=== PATIENT | female | born 1975 | race Two or more races ===

== ENCOUNTER 2019-02-06 07:48 | Emergency (ER) | payer OTHER ==
[~2019-02-06] VITALS: Ht 160 cm; Wt 95.3 kg
[2019-02-06 08:40] LABS: Urine Bacteria FEW /hpf (None Seen); Urine Blood 3+ /uL (Negative); Urine Mucus FEW (None Seen); Urine Specific Gravity 1.017 (1.001-1.035); Urine WBC 53 /hpf (0 - 5)
[2019-02-06] MEDS ORDERED: KETOROLAC TROMETH 60MG/2ML VIAL IM ONE (09:00)
[2019-02-06 09:57] VITALS: BP 137/84
== END 2019-02-06 10:23 | disposition home or self-care (01) ==
LOC: ER 07:51
DX: N39.0 Urinary tract infection, site not specified (principal); N20.0 Calculus of kidney; I10 Essential (primary) hypertension; M19.90 Unspecified osteoarthritis, unspecified site
CPT/HCPCS: 74176; 81001; 81025; 96372; 99284; J1885

== ENCOUNTER 2019-11-11 11:50 | Inpatient (IN) | payer OTHER ==
[~2019-11-11] VITALS: Ht 160 cm; Wt 102.7 kg
[2019-11-11 12:33] LABS: Urine WBC None Seen /hpf (0 - 5)
[2019-11-11 12:53] LABS: Urine Amorphous Crystal MANY /hpf (None Seen); Urine Bacteria FEW /hpf (None Seen); Urine Blood 2+ /uL (Negative); Urine Mucus FEW (None Seen)
[2019-11-11] MEDS ORDERED: SODIUM CHLORIDE 0.9% 1,000 ML IV ONE ×2 (13:12)
[2019-11-11] MEDS ORDERED: KETOROLAC TROMETH 15 mg/ml 1ML VL IV ONE (13:15)
[2019-11-11] MEDS ORDERED: ONDANSETRON HCL 4 MG/2 ML VIAL IV ONE (13:15)
[2019-11-11 13:31] LABS: Basophils # (auto) 0.1 uL; Hematocrit 38.1 % (36.0-46.0); Hemoglobin 11.9 g/dL (12.2-16.2); Lymphocytes # (auto) 2.4 uL; Mean Corpuscular Hemoglobin 23.6 pg (28.0-32.0); Monocytes # (auto) 0.8 uL; Neutrophils # (auto) 6.2 uL
[2019-11-11 13:33] LABS: Basophils % (auto) 0.5 % (0.0-2.0); Eosinophils # (auto) 0.5 uL; Eosinophils % (auto) 4.6 % (0.0-7.0); Lymphocytes % (auto) 24.4 % (10.0-50.0); Mean Corpuscular Hgb Conc. 31.3 g/dL (32.0-36.0); Mean Corpuscular Volume 75.3 fL (80.0-100.0); Monocytes % (auto) 8.2 % (0.0-12.0); Neutrophils % (auto) 62.3 % (37.0-80.0); Platelet Count (auto) 438 10^3/uL (140-450); Red Blood Cells 5.06 10^6/uL (4.0-5.20)
[2019-11-11 14:04] LABS: Albumin 3.2 g/dL (3.4-5.0); BUN/Creatinine Ratio 19.7; Calcium 8.4 mg/dL (8.5-10.1); Potassium 4.3 mmol/L (3.5-5.1)
[2019-11-11 14:07] LABS: Bilirubin, Total 0.2 mg/dL (0.2-1.0); Total Protein 8.5 g/dL (6.4-8.2)
[2019-11-11] MEDS ORDERED: TAMSULOSIN HYDROCHLORIDE 0.4 MG CAP PO ONE (15:30)
[2019-11-11] MEDS ORDERED: TEMAZEPAM 15 MG CAP PO PRN (19:00)
[2019-11-11] MEDS ORDERED: cefTRIAXone 1GM/50ML D5W 50 ML IV ONE (19:00)
[2019-11-11] MEDS ORDERED: ALPRAZolam 0.5 MG TAB PO PRN (19:30)
--- NOTE | 2019-11-11 19:30 | NUR ---
Patient arrived to unit via wheelchair. She was able to ambulate to her bed without assistance. Patient is A0x4 and on room air. She complains of lower flank pain and also right inguinal region pain. She has no further complaints of pain or discomfort. Bed is locked in lowest position with side rails up x2. Will continue to monitor.
[2019-11-11] MEDS ORDERED: QUET400T PO (19:57)
[2019-11-11] MEDS ORDERED: LOSA-69 PO (19:57)
[2019-11-11] MEDS ORDERED: IBUP800T24 PO (19:57)
[2019-11-11] MEDS ORDERED: ALPR0.5T7 PO (19:57)
[2019-11-11] MEDS ORDERED: HYDR50CA2 PO (19:58)
[2019-11-11] MEDS: SODIUM CHLORIDE 0.9% 1,000 ML IV SCH (20:24)
[2019-11-11] MEDS: traMADol HCL 50 MG TAB PO PRN (21:10)
[2019-11-11] MEDS ORDERED: QUET50TA PO (21:21)
[2019-11-11] MEDS: QUEtiapine FUMARATE 100 MG TAB PO SCH (22:41)
[2019-11-11] MEDS: QUEtiapine FUMARATE 25 MG TAB PO SCH (22:41)
[2019-11-11] MEDS: FAMOTIDINE 20 MG TAB PO SCH (22:42)
[2019-11-11 22:59] VITALS: BP 137/75
[2019-11-12] MEDS: traMADol HCL 50 MG TAB PO PRN ×2 (03:42→10:13)
[2019-11-12] MEDS ORDERED: PNEUMOCOCCAL VACC POLYS 25 MCG/0.5 ML VIAL IM ONE (06:00)
[2019-11-12] MEDS ORDERED: INFLUENZA QUAD 2019-2020 0.5ml SYRG IM ONE ×2 (06:00→06:14)
[2019-11-12 06:03] VITALS: BP 129/71
[2019-11-12] MEDS: SODIUM CHLORIDE 0.9% 1,000 ML IV SCH ×3 (06:11→20:04)
[2019-11-12] MEDS: QUEtiapine FUMARATE 25 MG TAB PO SCH ×3 (06:12→22:19)
[2019-11-12 07:36] LABS: Potassium 3.8 mmol/L (3.5-5.1)
[2019-11-12 07:44] LABS: BUN/Creatinine Ratio 16.7; Bilirubin, Total 0.4 mg/dL (0.2-1.0); Calcium 8.2 mg/dL (8.5-10.1); Total Protein 7.8 g/dL (6.4-8.2)
[2019-11-12 08:01] VITALS: BP 117/65
[2019-11-12] MEDS: FAMOTIDINE 20 MG TAB PO SCH ×2 (09:06→22:19)
[2019-11-12] MEDS: cefTRIAXone 1GM/50ML D5W 50 ML IV SCH (09:07)
[2019-11-12] MEDS: PROMETHAZINE HCL 25 MG/ML 1ML IV PRN ×3 (10:13→20:04)
--- NOTE | 2019-11-12 10:15 | NUR ---
Nausea and Vomiting Patient states she threw up and still feels nauseous. Will medicate with per orders. Will continue to monitor Q1 hour and PRN.
--- NOTE | 2019-11-12 10:23 | NUR ---
Dr. Kevin Sanabria at bedside Discussing plan of care with patient and this RN. New orders received for [place] 5/325 Q6 PRN , and to increase IV fluids to 150mls/hr. Will implement new orders. Will continue to monitor Q1 hour and PRN.
[2019-11-12] MEDS ORDERED: TAMSULOSIN HYDROCHLORIDE 0.4 MG CAP PO ONE (10:30)
[2019-11-12 12:10] VITALS: BP 134/71
[2019-11-12] MEDS: HYDROcodone-ACET 5/325MG TAB PO PRN ×2 (12:36→20:04)
--- NOTE | 2019-11-12 13:22 | NUR ---
Opening Note Received report from cooker mechanic RN. Patient is awake, alert and oriented x4. No signs or symptoms of distress noted at this time. Patient is on room air, respirations even and unlabored. Patient states pain 10/10 at this time and is requesting pain medications. Reviewed plan of care with patient, patient verbalized understanding. Bed in low and locked position, call light within reach. Will continue to monitor Q1 hour and PRN. Addendum: 11/12/19 at 1326 by GINGER THURSTON RN RN INCORRECT TIME, SHOULD HAVE BEEN AT 0745
[2019-11-12] MEDS ORDERED: traMADol HCL 50 MG TAB PO PRN (13:30)
--- NOTE | 2019-11-12 15:00 | NUR ---
Insurance Information Obtained patients medical insurance information, updated and placed in patients chart.
[2019-11-12 16:41] VITALS: BP 124/74
[2019-11-12] MEDS: TAMSULOSIN HYDROCHLORIDE 0.4 MG CAP PO SCH (17:25)
--- NOTE | 2019-11-12 19:11 | NUR ---
Closing Note Report given to night shift supervisor RN. No signs or symptoms of distress noted at this time.
[2019-11-12] MEDS: QUEtiapine FUMARATE 100 MG TAB PO SCH (22:19)
[2019-11-12 22:47] VITALS: BP 104/65
[2019-11-13] MEDS: SODIUM CHLORIDE 0.9% 1,000 ML IV SCH ×3 (04:09→16:25)
[2019-11-13 06:14] VITALS: BP 117/74
[2019-11-13] MEDS: QUEtiapine FUMARATE 25 MG TAB PO SCH ×2 (06:20→14:05)
--- NOTE | 2019-11-13 07:30 | NUR ---
Opening Note Received report from knit goods mender RN. Patient is awake, alert and oriented x4. No signs or symptoms of distress noted at this time. Patient is on room air, respirations even and unlabored. Patient denies pain at this time. Reviewed plan of care with patient, patient verbalized understanding. Bed in low and locked position, call light within reach. Will continue to monitor Q1 hour and PRN.
[2019-11-13] MEDS: cefTRIAXone 1GM/50ML D5W 50 ML IV SCH (07:47)
[2019-11-13] MEDS: PROMETHAZINE HCL 25 MG/ML 1ML IV PRN (08:29)
[2019-11-13] MEDS: HYDROcodone-ACET 5/325MG TAB PO PRN (08:30)
[2019-11-13 09:00] VITALS: BP 129/77
--- NOTE | 2019-11-13 11:53 | NUR ---
Dr. Kevin Sanabria at bedside Discussing plan of care with patient and this RN. Patient states she has important appointments tomorrow that she can not miss. Patient states she needs to be discharged today. MD instructed patient to follow up with PCP tomorrow, patient verbalized understanding. Patient agreed to wait for Urology to see her today, and to discharge home after. Will continue to monitor Q1 hour and PRN.
[2019-11-13] MEDS: FAMOTIDINE 20 MG TAB PO SCH (12:30)
[2019-11-13 13:00] VITALS: BP 132/83
[2019-11-13 13:23] VITALS: BP 132/83
[2019-11-13 17:00] VITALS: BP 127/77
[2019-11-13] MEDS: TAMSULOSIN HYDROCHLORIDE 0.4 MG CAP PO SCH (18:00)
--- NOTE | 2019-11-13 18:20 | NUR ---
Discharge Discharge instructions given as ordered. Encourage to follow up with PMD as instructed. All questions and concerns addressed. Patient verbalized understanding. Medication reconciliation form completed and copy given to patient. Home medications held in Pharmacy returned to patient, and needed vaccines given. IV removed with catheter intact, pressure dressing applied. Patient still in room waiting for ride home. Will continue to monitor.
--- NOTE | 2019-11-13 18:24 | NUR ---
Patient discharged Patient ambulated to private vehicle with all personal belongings. No signs or symptoms of distress noted at this time.
[2019-11-14 09:36] LABS: Hepatitis B Surface Antibody Negative
[2019-11-14 10:14] LABS: Hepatitis A Total Antibody Negative
[2019-11-14 11:37] LABS: Hepatitis C Antibody Negative (Negative)
[2019-11-14 11:40] LABS: Hepatitis B Core Total AB Negative; Hepatitis B Surface Antigen Negative (Negative)
== END 2019-11-13 18:24 | disposition home or self-care (01) | DRG 694 ==
LOC: ER 11:50 → WEST WING 11:51
PROVIDERS: ADMIT Internal Medicine; ATTEND Internal Medicine
DX: N13.2 Hydronephrosis with renal and ureteral calculous obstruction (principal); E44.1 Mild protein-calorie malnutrition; Z68.41 Body mass index [BMI] 40.0-44.9, adult; E66.01 Morbid (severe) obesity due to excess calories; E86.0 Dehydration; F41.9 Anxiety disorder, unspecified; F32.9 Major depressive disorder, single episode, unspecified; I10 Essential (primary) hypertension; D64.9 Anemia, unspecified; Z23 Encounter for immunization; Z68.38 Body mass index [BMI] 38.0-38.9, adult; Z83.3 Family history of diabetes mellitus; Z87.442 Personal history of urinary calculi; Z90.49 Acquired absence of other specified parts of digestive tract; Z98.84 Bariatric surgery status
CPT/HCPCS: 36415; 74176; 76705; 80053; 81001; 85025; 86704; 86706; 86708; 86803; 87086; 87340; 96361; 96374; 96375; G0378; J0696; J2405